=== PATIENT | female | born 1960 | race African-American/Black ===

== ENCOUNTER 2018-10-18 05:58 | Emergency (ER) | payer MEDICAID ==
[~2018-10-18] VITALS: Ht 162.6 cm; Wt 86.4 kg
[2018-10-18] MEDS ORDERED: SPIR25 PO (06:23)
[2018-10-18] MEDS ORDERED: METO25XL PO (06:23)
[2018-10-18] MEDS ORDERED: ATEN25TA PO (06:23)
[2018-10-18] MEDS ORDERED: LIDOCAINE 1% 10 ML VIAL INJ ONE (06:45)
[2018-10-18] MEDS ORDERED: PERTUSS(ACELL),DIPH,TET VAC/PF 0.5 ML VIAL IM ONE (06:45)
[2018-10-18] MEDS ORDERED: KETOROLAC TROMETHAMINE 60 MG/2 ML VIAL IM ONE (06:45)
[2018-10-18 08:59] VITALS: BP 111/62
[2018-10-18] MEDS ORDERED: OxyCODONE HCL/ACETAMINOPHEN 5-325 MG TABLET PO ONE (09:45)
== END 2018-10-18 10:00 | disposition home or self-care (01) ==
LOC: EMS 06:00
DX: S06.9X9A Unspecified intracranial injury with loss of consciousness of unspecified duration, initial encounter (principal); S01.81XA Laceration without foreign body of other part of head, initial encounter; I10 Essential (primary) hypertension; Y04.2XXA Assault by strike against or bumped into by another person, initial encounter; Y93.89 Activity, other specified; Y92.89 Other specified places as the place of occurrence of the external cause; Y99.8 Other external cause status
CPT/HCPCS: 12013; 70450; 90471; 90715; 96372; 99284; J1885; J3490

== ENCOUNTER 2023-10-30 18:18 | Emergency (ER) | payer MEDICAID ==
[~2023-10-30] VITALS: Ht 167.6 cm; Wt 72.7 kg
[~2023-10-30 18:18] MED LIST: ATEN-73 PO; METO25XL PO; SPIR-37 PO
[2023-10-30 18:31] VITALS: TEMP 98.8
[2023-10-30 21:05] VITALS: BP 126/76; PULSE 74; RESP 16
[2023-10-31 00:01] LABS: GLUCOMETER DEV NAME(LOC) ERT.5; GLUCOSE,POINT OF CARE 88 MG/DL (70-110)
== END 2023-10-30 23:01 | disposition home or self-care (01) ==
LOC: EMS 18:22
DX: M25.562 Pain in left knee (principal); M25.552 Pain in left hip; E11.9 Type 2 diabetes mellitus without complications; I10 Essential (primary) hypertension; Z96.659 Presence of unspecified artificial knee joint; W31.89XA Contact with other specified machinery, initial encounter; Y93.89 Activity, other specified; Y92.89 Other specified places as the place of occurrence of the external cause; Y99.8 Other external cause status
CPT/HCPCS: 72100; 73503; 82962; 99284